=== PATIENT | male | born 1990 | race Caucasian/White ===

== ENCOUNTER 2017-03-20 18:46 | Observation (INO) | payer OTHER ==
[~2017-03-20] VITALS: Ht 182.9 cm; Wt 85.9 kg
[2017-03-23] MEDS ORDERED: NOVOLOG100 UNIT/2 SQ ×2 (11:14→11:15)
[2017-03-23] MEDS ORDERED: TRESIBA FL100 UNIT/1 SQ (11:15)
--- NOTE | 2017-03-23 13:23 | HP ---
ADMIT: 03/20/2017 RM/LOC: [facility] MR#: [id number] [id number] [place], [place] [address] ANAHI PETERSON [address] [place] [address] History and Physical SEX: M AGE: 27 : 1990 CORRECTION: 03/23/2017 0106 DATE OF SERVICE: CHIEF COMPLAINT: Alcohol intoxication and hypoglycemic. HISTORY OF PRESENT ILLNESS: Anahi is a 27-year-old, white male, alcoholic who was admitted with alcohol intoxication. He stumbled into the emergency room and was evaluated. At that time, there was some question of being ready for treatment. There was some question of him having ingested hydrocodone with his alcohol. Drug screen was negative for narcotics but positive for acetaminophen. He was found to have an alcohol level of 436. His blood sugar was 55 when he was a little somnolent. He was given an amp of D50, which did improve his cognition. He was evaluated and screened by [facility]. They do have a bed available for him, but it was not felt to be safe to go with him being so intoxicated and not able to manage his diabetes. He was admitted at this time for observation until he became more awake. PAST MEDICAL HISTORY: Diabetes-sees Dr. Arthur Cowart in [place]. DKA three years ago. MEDICATIONS: 1. Blood pressure pill of some type, which sounds like it might be low-dose lisinopril, but he was not sure. 2. NovoLog 8 units before meals and also per sliding scale depending upon sugars, so if his sugar is 150-200, he takes 9 units, 201-250 he will take 10, and 251-300 he will take 11. 3. Tresiba 48 units at bedtime. ALLERGIES: NONE. SOCIAL HISTORY: He had been a smoker until about one month ago. Prior to that, 1/2 to 1 pack per day. He does drink alcohol. He admits to at least a 12 pack a day if not more. Occasional liquor. He did admit to drinking a bottle of that a day to the nurse. My suspicion is he drinks that if not more on a daily basis for him to even ambulate in with a blood alcohol level of over 400. 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 Has not gone through treatment. 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 Had lived in [place] until recently when he moved back home to [place], likely related to alcohol- related issues. FAMILY HISTORY: Maternal uncle x2 have of alcohol-related issues. Sister has a heart defect with some stenting, not sure exactly what that was. Paternal uncle also had a heart defect requiring open heart surgery. Maternal grandmother with a blood cancer as well as breast cancer. No heart disease. Diabetes type 2 father, paternal grandmother, and maternal grandfather. REVIEW OF SYSTEMS: Occasionally has some numbness of his left foot. ADMIT: 03/20/2017 RM/LOC: [facility] MR#: [id number] [address] [id number] ANAHI PETERSON [address] [place] [address] History and Physical SEX: M AGE: 27 : 1990 PHYSICAL EXAMINATION: VITAL SIGNS: Blood pressure on admission was 126/64, pulse 110, respirations 16, weight 86 kg. Sats 96%, temp 96.9. GENERAL: This is a well-developed, well-nourished, white male, who is in no distress. SKIN: Warm and dry. HEENT: Normocephalic, atraumatic. Anicteric. Mucous membranes are moist. NECK: Supple. LUNGS: Diminished. CARDIOVASCULAR: Regular without murmur or gallop. ABDOMEN: Soft. No organomegaly or masses. GENITOURINARY/RECTAL: Deferred. EXTREMITIES: No edema. LABORATORY DATA: Acetaminophen level of 6.4, which is still below normal. No narcotics. Alcohol 436 mg/dL. Creatinine was normal at 0.6, liver enzyme with an AST of 42, otherwise negative. White count 4.3, with normal hemoglobin and platelets. On admission, his blood sugar was 55 and he was symptomatic and lack of responsiveness. Has since improved. IMPRESSION: 1. Acute alcohol intoxication. 2. Hypoglycemia. 3. Diabetes type 1. 4. Elevated liver enzymes. 5. Neutropenia. DISCUSSION: We will admit at this time for IV fluids. Willing to discuss with him about going through treatment as this is very life-threatening. Hopefully, he will be able to stop drinking. It is already affecting things, and for him to walk in at all with this high of a level means he is quite tolerant. ADMIT: 03/20/2017 RM/LOC: [facility] MR#: [id number] [address] [place] [id number] ANAHI PETERSON [address] [place] [address] History and Physical SEX: M AGE: 27 : 1990 PLAN: 1. Sober with IV fluids and time. 2. Monitor sugars. 3. To [facility] for treatment once sober enough to take care of his diabetes. Pura So MD/ mando JOB #: [id number] CC: Pura So, Attending Physician Pura So, Family Physician Rachel Cowart MD [address] [address] CORRECTION: 03/23/2017 1134
--- NOTE | 2017-03-23 16:20 | ER ---
ADMIT: 03/20/2017 RM/LOC: [facility] MR#: [id number] [address] [address] ANAHI PETERSON [address] [place] [address] Emergency Room Report SEX: M AGE: 27 : 1990 DATE: 03/20/2017 ADDENDUM: CHIEF COMPLAINT: Questionable drug overdose of hydrocodone, and alcohol intoxication. HISTORY OF PRESENT ILLNESS: This is a 27-year-old male, who has a known alcohol problem. Fern, mom was called and said that he took around 6 hydrocodones. She was concerned, so brought him into the emergency room. COURSE IN THE EMERGENCY ROOM: [facility] labs were ordered. Overall findings, his tox screen is negative. UA is normal. CMP is normal except for AST elevated at 42, his acetaminophen level is 6.4, alcohol level is 436. Free T4 and TSH are normal. Salicylate is less than 1.7. Tox screen is negative. I did speak with [facility], they have 1 bed available. I am going to recheck the Tylenol level 4 hours after arrival to verify that he did not overdose on Tylenol. Then, will go to [facility] from the ER. CLINICAL IMPRESSION: Alcoholism. REMINGTON Ace / Mario Wilder MD / rufinol JOB #: [id number] CC: Pura So MD, Attending Physician Pura So MD, Family Physician
== END 2017-03-22 11:09 | disposition home or self-care (01) ==
LOC: ER 18:46 → 4PCU 21:06
PROVIDERS: ADMIT Internal Medicine
DX: F10.129 Alcohol abuse with intoxication, unspecified (principal); E10.649 Type 1 diabetes mellitus with hypoglycemia without coma; D70.9 Neutropenia, unspecified; R79.89 Other specified abnormal findings of blood chemistry; Z87.891 Personal history of nicotine dependence; Y90.8 Blood alcohol level of 240 mg/100 ml or more